=== PATIENT | female | born 2000 | race Caucasian/White ===

== ENCOUNTER 2023-09-08 15:40 | Emergency (ER) | payer OTHER, SELFPAY ==
[2023-09-08 15:41] VITALS: BP 136/91; PULSE 74; RESP 14; TEMP 36.8; O2SAT 100; BMI 28.7
[2023-09-08 15:48] VITALS: BP 136/88; PULSE 94; RESP 22
--- NOTE | 2023-09-08 15:57 | ED.VIS.CHEST ---
HPI History of Present Illness Chief Complaint: Chest Pain Informant: patient and spouse/S.O. Narrative Narrative: Patient presents with some chest and left shoulder neck area pain. Patient is overall healthy. She is on no medications. No family history of heart disease. She is not on control. No blood pressure diabetes cholesterol or smoking. No drug use. She states pretty much all day she has had soreness in her left chest just left of sternum but it is also in the left upper chest the side of the neck left shoulder area and a little bit the top of the left arm. She does feel just a little bit winded at times. But no coughing. No nausea vomiting diaphoresis. Pain does not change with exertion. It might be a little bit different with motion but she is not certain. She has not had this before. She has no recent travel surgery immobilization personal or family history of DVT or PE. Again she is not on control. On review of systems I also find out that she likely has sleep apnea. Her significant other states that she will wake up and take very deep breaths and make noises. Or occasionally do almost panting breathing. She will then go back to sleep but her breathing pauses. She does also snore. He states he has noticed more of this in the last couple weeks. I also find out that the patient hit her head 2 or so weeks ago. She had a swollen area in the back. It is gone now and her symptoms are improving from that. No loss of consciousness. She does not recall any neck pain with this. PFSH PFSH Medical History no medical history Home Medications NK 09/08/23 [History Last Taken Unknown] naproxen 500 mg tablet (Naprosyn) 500 mg PO BID PRN pain #20 tabs 09/08/23 [Rx Last Taken Unknown] Allergy/AdvReac Type Severity Reaction Status Date / Time No Known Allergies Allergy Verified 09/08/23 15:41 Family History Father Heart disease Surgical History no surgical history Social History household members: significant other current occupational status: employed Smoking Status: Never smoker ROS ROS ED Constitutional Constitutional ED: Denies chills, fever(s), subjective or sweats Eyes Eyes: Denies blurry vision ENT ENT ED: Denies ear pain, rhinorrhea or sore throat Cardiovascular Cardiovascular: Reports as per HPI Respiratory/Chest Respiratory/Chest: Denies cough or sputum Gastrointestinal Gastrointestinal: Denies nausea or vomiting Musculoskeletal Musculoskeletal: Reports neck pain and other Details: See history of present illness Integumentary Denies abscess, Abrasions or rash Neurologic Neurologic: Denies headache(s), paresthesias or weakness Hematologic/Lymphatic Hematologic/Lymphatic: Denies easy bleeding or easy bruising Allergic/Immunologic Allergic/Immunologic ED: Denies urticaria EXAM Physical Exam Narrative Exam Narrative: CONSTITUTIONAL: Patient is nontoxic in appearance. The patient looks comfortable. Work of breathing looks normal. HEENT: No notable trauma noted at this time. Mucous membranes moist. EYES: No conjunctival injection. No proptosis. NECK: No JVD or stridor. She does have some left paraspinal and left side of her neck mild muscular tenderness. Axial loading does not cause any radicular symptoms though. CARDIOVASCULAR: Regular rate. Regular rhythm. No notable murmur. No JVD. Tones are not muffled or distant. Her pulses are excellent and normal in both upper and lower extremities. RESPIRATORY: No respiratory distress. Breathing is unlabored. No wheezes. No rhonchi. No rales. No pain when she takes a deep breath. No chest wall tenderness. Her saturations are normal at 100% on room air showing no hypoxia. GASTROINTESTINAL: Not distended. Bowel sounds are normal. No tenderness. GENITOURINARY: No tenderness over the bladder. No CVA tenderness. MUSCULOSKELETAL: Atraumatic. No peripheral edema. No cord. No tenderness along the deep venous system. No asymmetry. No distended veins. NEUROLOGICAL: Patient is alert and appropriate. No focal deficit noted. SKIN: No noted rashes. No diaphoresis. PSYCHIATRIC: Patient is calm. Mood is appropriate. Const Vital Signs: 09/08/23 15:41 09/08/23 15:48 09/08/23 15:49 Temperature 98.2 F Temperature Source Temporal Pulse Rate 74 94 Respiratory Rate 14 22 H Respiratory Effort Short of Breath Blood Pressure 136/91 H 136/88 H Blood Pressure Mean 106 104 Pulse Ox 100 Oxygen Delivery Method Room Air MDM MDM MDM Narrative Medical decision making narrative: Patient's symptoms sound more muscular skeletal as she is sore on almost the entire left chest wall shoulder and left side of the neck. But I do not think this is radicular. Her vitals are normal including heart rate and oxygenation level. She is PERC negative. I do not think we need to evaluate for pulmonary embolus. There is no tearing severe pain back pain or abnormal pulses or any physical exam or historical findings that would point to dissection. My independent interpretation the patient's PA and lateral chest x-ray shows no pneumothorax cardiomegaly infiltrative process rib fracture or other noted abnormality. Final reading is negative also. Patient is not some motion related symptoms. She has no risk factor for PE or known risk factor for dissection. Exam and history is not consistent with those. No indication of cardiac disease. We will treat this with Naprosyn. But she does need to follow-up. I think she also has a component of sleep apnea and we explained that this can promote health problems especially if not treated for a long time. Radiography Diagnostic Testing: Clinical Impression(s) from Imaging Studies Chest X-Ray 09/08/23 16:08 IMPRESSION: Normal x-ray examination of the chest. Electronically Signed: Lionel Goddard MD at 16:55 EST , EKG Initial EKG: Comments: My independent interpretation of the patient's EKG shows normal sinus rhythm with a rate of 74. No ventricular ectopy. Mild baseline variation but no sign of ST elevation or depression in the EKG was done while she had soreness. TX interval, QRS duration and QTc are all normal. This is overall a normal EKG. Discharge Plan Triage Chief Complaint: Chest Pain ED Provider: Emir Marlow Dx/Rx/DC Orders Clinical Impression: Left-sided chest wall pain Instructions: ED Chest Pain, Uncertain Cause Prescriptions: New naproxen [Naprosyn] 500 mg tablet 500 mg PO BID PRN (Reason: pain) Qty: 20 0RF No Action NK Primary Care Provider: Care Physician,No Primary Referrals: Vijay Hopkins MD [Med Staff - Corrective Therapist] - 3-5 Days Care Physician,No Primary [Primary Care Provider] - Disposition Disposition: Home, Self Care
--- NOTE | 2023-09-08 16:08 | RAD_ITS ---
STUDY: X-RAY CHEST REASON FOR EXAM: Female, 23 years old. chest pain TECHNIQUE: Frontal and lateral views of the chest. COMPARISON: None. FINDINGS: The lungs are clear and expanded. There is no demonstrated pleural abnormality. Normal size heart. Normal mediastinum and shae. Normal visualized pulmonary arteries. Normal visualized aortic arch and descending thoracic aorta. Normal visualized thoracic spine. Normal visualized ribs, clavicles, and shoulders. There is no demonstrated abnormality of the visualized soft tissue structures of the upper abdomen. RAD/Chest PA and Lateral IMPRESSION: Normal x-ray examination of the chest. Electronically Signed: Lionel Goddard MD at 16:55 EST ,
[2023-09-08 17:19] VITALS: BP 118/78; PULSE 63; RESP 16
--- OUTSIDE RECORDS SUMMARY | 2023-09-08 18:05 | XMS RPT_ITS | CCD ---
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 SHAWN LEUNG DO Primary Care Unavailab le Medications Current Medications Medication Drug Class(es) Dates Sig (Normalized) Sig (Original) metFORMIN hydrochloride 500 mg oral tablet (1 source) Biguanide Start: 06-11-2022 metFORMIN 500 mg oral tablet (IR) 0 Refill(s) Start Date: 06/11/22 Status: Ordered Problems Problem Classification Problem Date Documented Da te Episodic/Chronic Other ear and sense organ disorders (1 source) Unspecified hearing loss, bilateral; Translations: [UNSPECIFIED HEARING LOSS BILATERAL] Onset: 05-15-2021 Chronic Other ear and sense organ disorders (1 source) Hearing loss 09-01-2015 Chronic Other endocrine disorders (1 source) Polycystic ovarian syndrome; Translations: [POLYCYSTIC OVARIAN SYNDROME] Onset: 05-15-2021 Chronic Other female genital disorders (2 sources) Benign endometrial hyperplasia; Translations: [BENIGN ENDOMETRIAL HYPERPLASIA] Onset: 05-15-2021 Chronic Sprains and strains (1 source) Strain of muscle and/or tendon of lower leg; Translations: [Strain of unspecified muscle(s) and tendon(s) at lower leg level, unspecified leg, initial encounter] Onset: 06-11-2022 Episodic Results Test Name Value Interpretation Reference Range Facil ity Vital Signs Date Time Vital Sign Value Performing Clinician Randee singh 06-11-2022 11:24-0400 Body temperature 98.78 [degF] DR EDILIA SALAS MD [facility] 06-11-2022 11:24-0400 Diastolic blood pressure 88 mm[Hg] DR EDILIA SALAS MD [facility] 06-11-2022 11:24-0400 Heart rate 78 /min DR EDILIA SALAS MD [facility] 06-11-2022 11:24-0400 Respiratory rate 18 /min DR EDILIA SALAS MD [facility] 06-11-2022 11:24-0400 Systolic blood pressure 136 mm[Hg] DR EDILIA SALAS MD [facility] Encounters Encounter Date Encounter Type Care Provider Facility Start: 06-11-2022 End: 06-11-2022 Emergency department patient visit EDILIA SALAS Facility:B Start: 06-11-2022 End: 06-11-2022 Emergency department patient visit DR EDILIA SALAS MD [facility] Start: 04-30-2021 End: 04-30-2021 ambulatory NO PCP AA NO PCP [facility] Start: 04-28-2021 ambulatory ORTEGA GÓMEZ [facility] Procedures Date Procedure Procedure Detail Performing Clinician None (qualifier value) DR TYSON SALAS MD Payers Date Payer Category Payer Unknown [id number] 2001 Unknown [id number] 2001 Unknown [id number] 1974 Unknown [id number] 1959 Unknown [id number] Social History Date Type Detail Facility Start: 03-04-2019 Tobacco smoking status Never s moked tobacco (finding) [facility] Sex Assigned At Female [facility] Functional Status Date Assessment Result Facility 06-11-2022 Functional Status Independent [facility] spital [facility] 06-11-2022 Functional Status Standard Safet y ID band on, Call device within reach, Bed in low position, Wheels locked, Upper/Half-Length side-rails up, Phone within reach, personal items within reach, Assistive devices within reach, Toileting device within reach, Bedside Cart Locked, Visitor at bedside, Safety level maintained [facility] Mental Status Date Assessment Result Facility 06-11-2022 Mental Status Orientation Oriented x 4 [facility] 06-11-2022 Mental Status [facility] Discharge instructions 06-11-2022 Note Date & Type Note Facility 06-11-2022 Hospital Discharg e instructions Patient Education 06/11/2022 12:18:15 Knee Sprain Knee Sprain A sprain is an injury to the ligaments or capsule that holds a joint together. There are no broken bones. Most sprains take 3 to 6 weeks to heal. If it a severe sprain where the ligament is completely torn, it can take months to recover. Most knee sprains are treated with a splint, knee immobilizer brace, or elastic wrap for support. Severe sprains may rarely require surgery. Home care Stay off the injured leg as much as possible until you can walk on it without pain. If you have a lot of pain with walking, crutches or a walker may be prescribed. (These can be rented or purchased at many pharmacies and surgical or orthopedic supply stores). Follow your healthcare provider's advice about when to begin putting weight on that leg. Keep your leg elevated to reduce pain and swelling. When sleeping, place a pillow under the injured leg. When sitting, support the injured leg so it is above heart level. This is very important during the first 48 hours. Apply an ice pack over the injured area for 15 to 20 minutes every 3 to 6 hours. You should do this for the first 24 to 48 hours. You can make an ice pack by filling a plastic bag that seals at the top with ice cubes and then wrapping it with a thin towel. Continue to use ice packs for relief of pain and swelling as needed. As the ice melts, be careful to avoid getting your wrap, splint, or cast wet. After 48 hours, apply heat (warm shower or warm bath) for 15 to 20 minutes several times a day, or alternate ice and heat. You can place the ice pack directly over the splint. If you have to wear a jezb-wrd-xzag knee brace, you can open it to apply the ice pack, or heat, directly to the knee. Never put ice directly on the skin. Always wrap the ice in a towel or other type of cloth. You may use fzcc-cmn-zxsvmdc pain medicine to control pain, unless another pain medicine was prescribed. If you have chronic liver or kidney disease or ever had a stomach ulcer or gastrointestinal bleeding, talk with your healthcare provider before using these medicines. If you were given a splint, keep it completely dry at all times. Bathe with your splint out of the water, protected with 2 large plastic bags, sealed with rubber bands or tape at the top end. If a fiberglass splint gets wet, you can dry it with a biology department chair set to cool. If you have a wgrf-rll-gxid knee brace, you can remove this to bathe, unless told otherwise. Follow-up care Follow up with your doctor as advised. Any X-rays you had today don t show any broken bones, breaks, or fractures. Sometimes fractures don t show up on the first X-ray. Bruises and sprains can sometimes hurt as much as a fracture. These injuries can take time to heal completely. If your symptoms don t improve or they get worse, talk with your doctor. You may need a repeat X-ray. If X-rays were taken, you will be told of any new findings that may affect your care. Call 911 Call 911 if you have: Shortness of breath Chest pain When to seek medical advice Call your healthcare provider right away if any of these occur: The splint or knee immobilizer brace becomes wet or soft The fiberglass cast or splint remains wet for more than 24 hours Pain or swelling increases The injured leg or toes become cold, blue, numb, or tingly 3916-2032 [employer]. [address] [place] [address]. All rights reserved. This information is not intended as a substitute for professional medical care. Always follow your healthcare professional's instructions. Follow Up Care 06/11/2022 11:18:05 With:SHAWN LEUNG DO Address: [place] [address] [phone] When:2-4 days [facility] Emergency department Discharge summary 06-11-2022 Note Date & Type Note Facility 06-11-2022 Emergency department Discharge summary Discharge Instructions Thank you for allowing [facility] to assist you with your healthcare needs. The following is important discharge information regarding your hospital visit. Diagnosis from Today's Visit Strain of knee Fall Knee pain-swelling What to Do Next Instructions from Your Care Team Discharge Home Equipment - Ordered -- Crutches, 1 month(s), 06/11/22 12:18:00 EDT Post Acute Orders No qualifying data available. You Need to Schedule the Following Appointments Follow Up with SHAWN LEUNG DO When Within 2-4 days Where: [place] [address] [phone] Allergies NKA Medications Please ask your primary doctor or pharmacist before taking any other medication not listed, including over the counter drugs, herbal medications, vitamins and or supplements as they may interact with your home medications. What When Instructions Last Dose Unchanged metFORMIN (metFORMIN 500 mg oral tablet (IR)) Please take this list to your next doctor s visit. Bring all medications you take, including over the counter medications, herbals and other supplements with you to your doctor s visit. Patients and families are reminded to discard old lists and to update any records with all medication providers or retail pharmacies. Education Materials Knee Sprain A sprain is an injury to the ligaments or capsule that holds a joint together. There are no broken bones. Most sprains take 3 to 6 weeks to heal. If it a severe sprain where the ligament is completely torn, it can take months to recover. Most knee sprains are treated with a splint, knee immobilizer brace, or elastic wrap for support. Severe sprains may rarely require surgery. Home care Stay off the injured leg as much as possible until you can walk on it without pain. If you have a lot of pain with walking, crutches or a walker may be prescribed. (These can be rented or purchased at many pharmacies and surgical or orthopedic supply stores). Follow your healthcare provider's advice about when to begin putting weight on that leg. Keep your leg elevated to reduce pain and swelling. When sleeping, place a pillow under the injured leg. When sitting, support the injured leg so it is above heart level. This is very important during the first 48 hours. Apply an ice pack over the injured area for 15 to 20 minutes every 3 to 6 hours. You should do this for the first 24 to 48 hours. You can make an ice pack by filling a plastic bag that seals at the top with ice cubes and then wrapping it with a thin towel. Continue to use ice packs for relief of pain and swelling as needed. As the ice melts, be careful to avoid getting your wrap, splint, or cast wet. After 48 hours, apply heat (warm shower or warm bath) for 15 to 20 minutes several times a day, or alternate ice and heat. You can place the ice pack directly over the splint. If you have to wear a gpsg-uow-uyki knee brace, you can open it to apply the ice pack, or heat, directly to the knee. Never put ice directly on the skin. Always wrap the ice in a towel or other type of cloth. You may use ilgz-gkz-qeewvcv pain medicine to control pain, unless another pain medicine was prescribed. If you have chronic liver or kidney disease or ever had a stomach ulcer or gastrointestinal bleeding, talk with your healthcare provider before using these medicines. If you were given a splint, keep it completely dry at all times. Bathe with your splint out of the water, protected with 2 large plastic bags, sealed with rubber bands or tape at the top end. If a fiberglass splint gets wet, you can dry it with a biology department chair set to cool. If you have a ivrw-kug-wonf knee brace, you can remove this to bathe, unless told otherwise. Follow-up care Follow up with your doctor as advised. Any X-rays you had today don t show any broken bones, breaks, or fractures. Sometimes fractures don t show up on the first X-ray. Bruises and sprains can sometimes hurt as much as a fracture. These injuries can take time to heal completely. If your symptoms don t improve or they get worse, talk with your doctor. You may need a repeat X-ray. If X-rays were taken, you will be told of any new findings that may affect your care. Call 911 Call 911 if you have: Shortness of breath Chest pain When to seek medical advice Call your healthcare provider right away if any of these occur: The splint or knee immobilizer brace becomes wet or soft The fiberglass cast or splint remains wet for more than 24 hours Pain or swelling increases The injured leg or toes become cold, blue, numb, or tingly 6521-1200 [employer]. [address] [place] [address]. All rights reserved. This information is not intended as a substitute for professional medical care. Always follow your healthcare professional's instructions. Additional Information VACCINATE! IT SAVES LIVES! Members of the community who have not yet received the COVID-19 vaccine and would like to receive it can visit one of [facility] vaccine clinics. There are many vaccine clinic locations within the [facility]. For locations and available times, please visit www.[email or web address].[email or web address] rg. It is important to note that some COVID mobile vaccine clinics are held outdoors and may be canceled in rainy or stormy conditions. To learn more about pediatric vaccinations (ages 5-11), we invite you to visit the [facility] webpage. https://[email or web address]/pa tai/[email or web address]-Tcccs-Jgkvkvtigdp-Freque coux-Hmtlv-Sgvhgnxxw.html To learn more about the COVID-19 vaccine, we invite you to visit the [employer] website for a list of frequently asked questions. [email or web address]/Amadeo uz-eaw-Zagphlsq/letpn-Upahfgi-Inv quently_[email or web address]-Questions.pdf [facility] Patient Portal Access Instructions: Stay connected with your healthcare team and access your personal medical information anytime with the [facility] Patient Portal. If you would like a full copy of your medical records please contact the [facility] Medical Records Department Monday through Monday between 8a.m. and 4:30p.m. Please follow the directions below to access the portal: 1.Access the email account you provided upon registration to the [facility].2.Look for an invitation email from [facility].3.Open the email and access the invitation link: Accept Invitation to [facility]4.Fill in the required tellez to create your account. Sign into [email or web address] with your username and password that you created in the above steps to stay up to date. You can then view a summary of results, a summary of your visits, and the ability to download your summaries to your computer or send the information securely to a physician. Remember that your healthcare information is confidential, so carefully consider who you will allow to register on the [facility] Patient Portal for access to your information. You can also access the [facility] Patient Portal on the [employer] jeanne. Simply click on Health Records under Health Data and then click on the [employer] logo. HOW TO SAFELY DISPOSE OF PRESCRIPTION MEDICATIONS Please use one of the following methods to safely dispose of your unused medications. 1.Use a drug disposal kit: the drug disposal pouch allows you to safely discard your old and unused drugs. Ask your nurse to give you one when you are discharged.2.Visit a local take-back location: Many local pharmacies and police departments have programs that collect old and unwanted prescription drugs. Call your local pharmacy or go to http://bit.MuteButton/5K3Lh6b to find one close to you.3.Make use of household items: Use cat litter or old coffee grounds to dispose medications if other options are not available. Mix your drugs with these household products, seal them in an airtight container and throw it into the garbage. Call [facility]: [phone] to be sure your drugs can be disposed of in this way. Some medicines may require a different approach.4.Never flush your medications down the toilet. IF YOU HAVE BEEN PRESCRIBED AN OPIOIDS FOR PAIN If you have been prescribed an opioid (such as hydrocodone, oxycodone or morphine), it is critical to understand the possible side effects and risks of opioid pain medications. Even when taken as directed, opioids can have several side effects including: Tolerance, meaning you might need to take more of a medication for the same pain relief. Nausea, vomiting and/or constipation. Sleepiness, dizziness, dry mouth, confusion, depression or itching. Physical dependence, meaning you have withdrawal symptoms when a medication is stopped ? this can develop within a few days. KNOW YOUR RESPONSIBILITIES It is important to know exactly how much and how often to take the opioid pain medications you are prescribed. Never take opioids in higher amounts or more often than prescribed. Do not combine opioids with alcohol or other drugs that cause drowsiness, such as benzodiazepines, also known as benzos, including diazepam and alprazolam, muscle relaxants or sleep aids. Never sell or share prescription opioids. This is illegal. Store opioids in a secure place and out of reach of others (including children, family, friends and visitors). The last page(s) of this document has been signed and retained as a CHART COPY Signatures Patient Education Materials Knee Sprain Medication Leaflets My discharge plan and instructions have been reviewed and explained to me and I,CL FREEMAN understand my current condition and have read and understand these discharge instructions. I have received a written copy of the plan/instructions. If I have questions, I am aware that I should contact my doctor. 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 HISTORY: ORDERING SYSTEM PROVIDED HISTORY: Reason for Exam: Pain FINDINGS: Very minor patellar and medial compartment degenerative spurring is evident. Minimal lateral tilting of the patella is noted. No fracture, dislocation or significant joint fluid seen. IMPRESSION: Minor degenerative findings, no acute process. Interpreted by: Jorge L Orourke MD Preliminary Report By: Jorge L Orourke MD Electronically signed By Jorge L Orourke MD Dictated Date: 06/11/2022 12:05:14 PM Prelim Date: 06/11/2022 12:05:46 PM Sign Date: 06/11/2022 12:05:46 PM Ordering Provider: EDILIA [facility] Clinical Note 06-11-2022 Note Date & Type Note Facility 06-11-2022 Note ORIGINAL EXAMINATION: THREE XRAY VIEWS OF THE LEFT KNEE 06/11/2022 12:03 pm COMPARISON: None. HISTORY: ORDERING SYSTEM PROVIDED HISTORY: Reason for Exam: Pain FINDINGS: Very minor patellar and medial compartment degenerative spurring is evident. Minimal lateral tilting of the patella is noted. No fracture, dislocation or significant joint fluid seen. IMPRESSION: Minor degenerative findings, no acute process. Interpreted by: Jorge L Orourke MD Preliminary Report By: Jorge L Orourke MD Electronically signed By Jorge L Orourke MD Dictated Date: 06/11/2022 12:05:14 PM Prelim Date: 06/11/2022 12:05:46 PM Sign Date: 06/11/2022 12:05:46 PM Ordering Provider: [facility] Evaluation + Plan note Note Date & Type Note Facility Evaluation + Plan note No data available for this section [facility] Summary Purpose Family History No Family History Records FoundNo Family History Records FoundNo Family History Records FoundNo Family History Records Found Advance Directives No Advanced Directives Records FoundNo Advanced Directives Records FoundNo Advanced Directives Records FoundNo Advanced Directives Records Found Additional Source Comments INFORMATION SOURCE (unrecogn ized section and content) DATE CREATED AUTHOR AUTHOR'S ORGANIZ ATION 05/06/2021 [facility] DATE CREATED AUTHOR AUTHOR'S ORGANIZ ATION 06/04/2021 [facility] DATE CREATED AUTHOR AUTHOR'S ORGANIZ ATION 06/15/2022 [facility] ([place] Care Team (unrecognized sect ion and content) Care Team Personnel Name: Amari Land Resource Specialist Shannon SCHAEFFER Position: P3 Scheduling - Building Manager Advanced Member Role: Other Name: SHAWN LEUNG DO Position: P4 Physician - Primary Care Member Role: Primary Care Physician Address: Address: [address] [place], [place] [address] Name: MD MARITZA, EDILIA INIGUEZ Position: ED Physician Member Role: ED Physician Address: Address: [address] [place] [address] Care Team Related Persons Name: CHELLE FREEMAN Address: Home [address] [place], [place] [id number] Name: CHELLE FREEMAN Address: [address] [phone] US FOR RECORDS PERTAINING TO PATIENTS WHO ARE OR HAVE BEEN ENROLLED IN A CHEMICAL DEPENDENCY/SUBSTANCEABUSE PROGRAM, SOME INFORMATION MAY BE OMITTED. This clinical summary was aggregated from multiple sources. Caution should be exercised in using it in the provision of clinical care. This summary normalizes information from multiple sources, and as a consequence, information in this document may materially change the coding, format and clinical context of patient data. In addition, data may be omitted in some cases. CLINICAL DECISIONS SHOULD BE BASED ON THE PRIMARY CLINICAL RECORDS. [facility] [employer] [facility]. provides no warranty or guarantee of the accuracy or completeness of information in this document.
== END 2023-09-08 17:21 | disposition home or self-care (01) ==
PROVIDERS: Emergency Provider Emergency Medicine; Visit Provider Emergency Medicine
DX: R07.89 Other chest pain (principal); M25.512 Pain in left shoulder
CPT/HCPCS: 71046; 93005; 99282

== ENCOUNTER 2024-01-07 23:43 | Emergency (ER) | payer OTHER, SELFPAY ==
[2024-01-07 23:44] VITALS: PULSE 80; RESP 18; TEMP 36.2; O2SAT 98; BMI 31.3
--- NOTE | 2024-01-07 23:52 | EX.ED.UPPERE ---
HPI History of Present Illness Chief Complaint: Upper Extremity Injury Detail of Chief Complaint: Pain, swelling left long finger. Occured/Mechanism Mechanism/Context: Yes other see comment below Comment: Patient bites her nails. Onset/Context/Timing Onset: Days Context: Sudden Onset Timing: Continuous and Waxes and wanes Quality of Pain: Dull, Aching and Throbbing Location: Right long finger radial side Current Severity: Mild Maximum Severity: Moderate Worsened by: Typing or using her left hand Relieved by: Nothing Associated Symptoms Associated Symptoms: Negative for Parasthesia, Weakness or Loss of Funtion Narrative Narrative: Patient is a 23-year-old [id number] female who presents with pain swelling and drainage from her left long finger on the radial side. She does have history of biting her nails. She has been soaking it in salt water, apple vinegar and other home remedies. She states it has not gotten better for the last 3 days. She states the pain is worse. She denies fever, chills night sweats. She denies history of diabetes. She denies red streak or tenderness posterior left elbow or left axilla. Tetanus Immunization: 5-10 years Prior similar symptoms: No Recent Illness/Hospitalization: No PFSH PFSH Home Medications ?Medication ?Instructions ?Recorded ?Last Taken ?Type NK 09/08/23 Unknown History naproxen 500 mg tablet (Naprosyn) 500 mg PO BID PRN pain #20 tabs 09/08/23 Unknown Rx Allergy/AdvReac Type Severity Reaction Status Date / Time No Known Allergies Allergy Verified 01/07/24 23:43 Family History Father Heart disease Surgical History no surgical history no surgical history Social History household members: significant other current occupational status: employed Smoking Status: Never smoker ROS ROS ED Constitutional Constitutional ED: Denies chills, fever(s) or subjective Integumentary Reports other Details: Patient has a paronychia radial side left long finger. Neurologic Neurologic: Denies paresthesias or weakness Hematologic/Lymphatic Hematologic/Lymphatic: Denies easy bleeding or easy bruising EXAM Physical Exam Const Vital Signs: 01/07/24 23:44 Temperature 97.1 F L Temperature Source Temporal Pulse Rate 80 Respiratory Rate 18 Pulse Ox 98 Oxygen Delivery Method Room Air Positive well nourished and well developed General Appearance ED: well developed and NAD HEENT Reports moist mucous membranes normocephalic and atraumatic Eyes PERRL and EOMs intact bilaterally Resp normal respiratory effort Cardio regular rate and regular rhythm Extremity Negative for normal to inspection Extremity Narrative: Patient has evidence of a paronychia radial side. Neuro oriented x3 and CN's II-XII intact bilaterally Neuro Narrative: Median, radial and ulnar function intact. Skin Skin Narrative: Paronychia radial side left long finger no lymphangitis. No epitrochlear lymphadenopathy. MDM MDM MDM Narrative Medical decision making narrative: Patient has a paronychia. Plan a digital block and small incision to facilitate drainage. Procedures Other Procedures Procedure(s): Digital block to incise paronychia radial side left long finger. Using a 15 blade small incision was made. There is scant amount of purulent material. Discharge Plan Triage Chief Complaint: Upper Extremity Injury ED Provider: Kulwinder Khan Dx/Rx/DC Orders Clinical Impression: Paronychia of left middle finger Instructions: ED Paronychia of the Finger or Toe Prescriptions: No Action NK naproxen [Naprosyn] 500 mg tablet 500 mg PO BID PRN (Reason: pain) Qty: 20 0RF Primary Care Provider: Care Physician,No Primary Referrals: Care Physician,No Primary [Primary Care Provider] - Doctor,Your [Non-Staff] - 3-5 Days if not improving Print Language: Belarusian Disposition Disposition: Home, Self Care
[2024-01-08] MEDS: Lidocaine 1% (20 ml mdv) 20 ML Vial INFILT (00:02)
[2024-01-08 00:11] VITALS: BP 140/96; PULSE 74; RESP 16; TEMP 36.1; O2SAT 97
== END 2024-01-08 00:11 | disposition home or self-care (01) ==
PROVIDERS: Emergency Provider Emergency Medicine; PCP Internal Medicine; Visit Provider Emergency Medicine
DX: L03.012 Cellulitis of left finger (principal)
CPT/HCPCS: 10060; 99282

== ENCOUNTER → 2024-03-25 | Outpatient (CLI) | payer MEDICAID, SELFPAY | END | disposition home or self-care (01) | PROVIDERS: PCP Physician Assistant; Referring Provider Physician Assistant; Visit Provider Physician Assistant | DX: R00.2 Palpitations (principal) | CPT/HCPCS: 93225; 93226 ==

== ENCOUNTER → 2024-04-19 | Outpatient (CLI) | payer MEDICAID, SELFPAY ==
[2024-04-19 15:27] LABS: Absolute Lymphocyte Count 1.81 X10^3/uL (0.83-4.51); Absolute Neutrophil Count 2.2 X10^3/uL (2.0-7.7); Basophil# 0.04 X10^3/uL; Basophil% 0.9 % (0-1); Eosinophil# 0.18 X10^3/uL; Eosinophils% 3.9 % (0-5); Hematocrit 46.9 % (37-47); Hemoglobin 15.6 g/dL (12.0-15.0); Lymphocyte # 1.81 X10^3/ul (0.83-4.51); Lymphocyte % 39.3 % (19-41); Mean Corp Hgb Conc 33.3 g/dL (32-36); Mean Corpuscular Hgb 29.7 pg (27.0-32.0); Mean Corpuscular Volume 89.2 fL (81-99); Mean Platelet Vol. 11.2 fl (6.2-12.0); Monocyte# 0.42 X10^3/uL; Monocyte% 9.1 % (0-10); NRBC Flagged by Analyzer 0 % (0-5); Neutrophil # 2.15 X10^3/uL (2.7-7.7); Neutrophil % 46.6 % (47-70); Platelet Count 269 K/mm3 (150-450); RBC Distribution Width CV 12.5 % (11.6-14.6); Red Blood Count 5.26 M/mm3 (4.2-5.4); White Blood Count 4.6 K/mm3 (4.4-11.0)
[2024-04-19 16:15] LABS: ALB/GLOB Ratio 1.1 RATIO (0.9-2.4); AST(SGOT) 22 U/L (15-37); Alanine Aminotransfer ALT/SGPT 69 U/L (13-56); Albumin, Serum 3.9 g/dL (3.2-5.0); Alkaline Phosphatase 63 U/L (45-117); Anion Gap 6 (5-15); BUN 16 mg/dL (7-18); BUN/Creat Ratio 24.2 RATIO (10-20); Calcium,Total 9.4 mg/dL (8.5-10.1); Chloride 108 mmol/L (98-107); Cholesterol 224 mg/dL (200); Creatinine, Serum 0.66 mg/dL (0.55-1.02); EST Glomerular Filtration Rate 118 mL/min (>60); Est Glom Filt Rate - Afr Amer 143 mL/min (>60); Globulin 3.5 g/dL (2.2-4.2); Glucose 90 mg/dL (74-106); High Density Lipoprotein 51 mg/dL; Potassium 4.2 mmol/L (3.5-5.1); Protein, Total 7.4 g/dL (6.4-8.2); Sodium Level 138 mmol/L (136-145); Triglycerides 136 mg/dL; Very Low Density Lipoprotein 27 mg/dL (5-40)
== END | disposition home or self-care (01) ==
LOC: BIMLAB 12:34
PROVIDERS: PCP Physician Assistant; Referring Provider Physician Assistant; Visit Provider Physician Assistant
DX: Z00.00 Encounter for general adult medical examination without abnormal findings (principal); R00.2 Palpitations
CPT/HCPCS: 36415; 80053; 80061; 85025

== ENCOUNTER 2024-08-28 14:48 | Emergency (ER) | payer MEDICAID, SELFPAY ==
[2024-08-28 14:49] VITALS: BP 121/61; PULSE 138; RESP 19; TEMP 39; O2SAT 99
--- NOTE | 2024-08-28 15:18 | RAD_ITS ---
INDICATION: SOB EXAMINATION/TECHNIQUE: X-RAY - XR Chest 1 View COMPARISON: 09/08/2023 FINDINGS: LINES/DEVICES: None. LUNGS: No consolidation, edema or effusion. No pneumothorax. MEDIASTINUM AND CARDIOVASCULAR STRUCTURES: Cardiac silhouette not enlarged. Central airways and mediastinal contour are unremarkable. BONES AND SOFT TISSUES: Unremarkable. RAD/Chest 1 View IMPRESSION: No radiographic evidence of acute cardiopulmonary disease. Electronically Signed: Gary Marcum MD at 15:41 EST ,
[2024-08-28 15:27] VITALS: O2SAT 97; BMI 34.4
--- NOTE | 2024-08-28 15:46 | EX.ED.VIS.UR ---
HPI HPI - URI History of Present Illness Chief Complaint: Shortness of Breath Detail of Chief Complaint: Symptoms started on Monday. Informant: patient Onset/Context/Timing Onset: Days Context: Gradual Onset Timing: Continuous Current Severity: Mild Maximum Severity: Mild Associated Symptoms Associated Symptoms: Positive for Myalgias and Nonproductive cough Narrative Narrative: 24-year-old female no seen past medical or surgical history. Since Monday felt she had a mild cold. Progressively worsened today she fell a lot worse fevers high as 1019. Diffuse body aches. Mild headache. Nonproductive cough. No vomiting. No diarrhea or fever. She did take DayQuil today. Denies any dysuria. Prior similar symptoms: Yes Recent Illness/Hospitalization: No ROS ROS ED ROS Narrative Fever. Body aches. Nonproductive cough. Constitutional Constitutional ED: Reports chills and fever(s) Eyes Eyes: Denies blurry vision ENT ENT ED: Denies ear pain Cardiovascular Cardiovascular: Denies chest pain Respiratory/Chest Respiratory/Chest: Reports cough; Denies sputum Gastrointestinal Gastrointestinal: Denies abdominal pain, constipation, diarrhea, melena, nausea or vomiting Genitourinary Genitourinary ED: Denies dysuria or hematuria Musculoskeletal Musculoskeletal: Reports myalgias; Denies arthralgias, back pain or neck pain Integumentary Denies abscess or Abrasions Neurologic Neurologic: Reports headache(s) Psychiatric Psychiatric: Denies anxiety or depression Endocrine Endocrinology: Denies cold intolerance Hematologic/Lymphatic Hematologic/Lymphatic: Denies easy bleeding, easy bruising or lymphadenopathy Allergic/Immunologic Allergic/Immunologic ED: Denies mouth swelling, tongue swelling or urticaria PFSH PFS Medical History Depression Anxiety Anemia PCOS (polycystic ovarian syndrome) Home Medications ?Medication ?Instructions ?Recorded ?Last Taken ?Type buspirone 5 mg tablet 5 mg PO BID #180 tabs 05/21/24 Unknown Rx hydroxyzine HCl 25 mg tablet 25 mg PO BID PRN anxiety #20 tabs 05/22/24 Unknown Rx Allergy/AdvReac Type Severity Reaction Status Date / Time No Known Allergies Allergy Verified 05/30/24 17:49 Family History Father Heart disease Surgical History H/O dilation and curettage Social History adopted: No household members: significant other current occupational status: employed 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 Blood pressure stable 121/61. Pulse ox 9 9% on room air. H EENT exam pupils round reactive light. Mild dry mucous membranes. TMs normal. Neck nontender no lymphadenopathy no meningismus. Able to touch chin to chest. Lungs clear to auscultation bilaterally. Heart tachycardic 130 no murmur chest wall ribs nontender. Abdomen soft nontender. Moving all 4 extremities. Nontender no edema. No rashes. Normal journey lineman strength. Normal dorsi plantarflexion. Back nontender. Skin unremarkable. Neurologically she is awake alert no focal motor deficits. Exam consistent with a viral syndrome. Const Vital Signs: 08/28/24 14:49 08/28/24 15:27 Temperature 102.2 F H Temperature Source Oral Pulse Rate 138 H Respiratory Rate 19 H Respiratory Effort Short of Breath Respiratory Depth Deep Respiratory Pattern Tachypnea Blood Pressure 121/61 H Blood Pressure Mean 81 Pulse Ox 99 Oxygen Delivery Method Room Air Room Air Positive well nourished and well developed; Negative for cachectic or contractures General Appearance ED: well developed and NAD; Negative for cachectic, contractures, cyanotic, diaphoretic or pallor Nutritional Appearance: Negative for cachectic HEENT Reports dry mucous membranes; Denies moist mucous membranes normocephalic and atraumatic Mouth ED: Yes dry mucous membranes Mouth: dry mucous membranes Throat: posterior oropharynx normal Eyes PERRL and EOMs intact bilaterally General Eye ED: Negative for pale conjunctiva or scleral icterus Neck no lymphadenopathy, supple, no meningeal signs and no JVD General: Negative for anterior neck swelling or lymphadenopathy Resp normal respiratory effort and clear to auscultation bilaterally Effort and Inspection: Negative for retractions Auscultation: Negative for rales, rhonchi, wheezes or diminished lung sounds Cardio S1 normal heart sound, S2 normal heart sound and no murmurs Rate: tachycardic Rhythm: regular rhythm GI non-tender, non-distended and no masses Inspection: Negative for abdominal distention Palpation: soft; Negative for tender, guarding or mass Back/Spine no CVA tenderness and normal ROM General Back: Negative for CVA tenderness Cervical Spine: Negative for cervical spine tenderness Thoracic Spine / Upper Back: Negative for thoracic spinal tenderness Lumbar Spine / Lower Back: Negative for lumbar spinal tenderness Sacrum: Negative for tenderness Extremity normal to inspection and full ROM General Extremety ED: Negative for cyanosis or tenderness General Extremity: Negative for cyanosis Neuro oriented x3 and CN's II-XII intact bilaterally Sensorium / Orientation: alert, oriented to person, oriented to place and oriented to time; Negative for orientation impaired or lethargic Motor Exam: strength 5/5 throughout Psych mental status grossly normal Attitude: No agitated Mood & Affect: Negative for depressed, anxious or tearful Skin General Skin Exam: Negative for jaundice or pallor Lesions: no lesions Rashes: no rashes MDM MDM MDM Narrative Medical decision making narrative: 24-year-old female with parents of a viral syndrome possibly influenza versus other. Screening labs. Chest x-ray was already obtained which shows no acute abnormality. No obvious pneumonia. COVID and flu will be obtained along with show get IV fluids and p.o. Tylenol. Be reassessed. Patient did not want the IV fluids. So she did not get an IV nor any blood work. Patient's test came back flu a positive. She did not want IV labs or IV fluids. I went back to reevaluate her for 10 PM. She is doing well. Should be discharged home and treated as influenza. Fluids and rest. Tylenol and Motrin. History & Record Review Discussion w/independent historian: Patient Additional record(s) reviewed:: Prior inpatient record, Prior outpatient record, Prior ED visit and Prior labs Lab Data Attestation: I reviewed the patient's lab results. Lab results narrative: CBC shows Radiography Chest X-Ray - ED: 1 View, Read by ED Physician, Read by Radiologist, Normal, Heart, Mediastinum, Bony Structures, No Acute Disease and Chronic Changes Diagnostic Testing: Clinical Impression(s) from Imaging Studies Chest X-Ray 08/28/24 15:18 IMPRESSION: No radiographic evidence of acute cardiopulmonary disease. Electronically Signed: Gary Marcum MD at 15:41 EST Reading Location ID and State: [facility] / [place] Tel , Service support , Chest x-ray, portable, single view interpreted by myself and the radiologist shows no acute abnormality. Normal cardiac silhouette. Normal lung tellez. No pneumonia. Discharge Plan Triage Chief Complaint: Shortness of Breath ED Provider: Brandon Soria Dx/Rx/DC Orders Clinical Impression: Influenza A Instructions: ED Influenza (Adult) Prescriptions: No Action buspirone 5 mg tablet 5 mg PO BID Qty: 180 0RF hydroxyzine HCl 25 mg tablet 25 mg PO BID PRN (Reason: anxiety) Qty: 20 0RF Primary Care Provider: Louie Crum Referrals: Louie Crum PA [Primary Care Provider] - 3-5 Days if not improving Activity Restrictions/Additional Instructions: Plenty of fluids and rest. Alternate Tylenol and Motrin for fever. Follow-up your primary care provider if not improving or return if a lot worse. Your chest x-ray looked good no pneumonia. Here swab which showed flu a positive. So you have the flu. Print Language: Bengali Disposition Disposition: Home, Self Care
[2024-08-28 15:49] VITALS: BP 156/78; PULSE 81; RESP 16; TEMP 36.6; O2SAT 96
[2024-08-28] MEDS: Acetaminophen 500 MG Tablet 1000 MG PO (15:57)
--- NOTE | 2024-08-28 16:03 | ED.RN ---
Pt declines IV fluids and labs, ED MD aware.
== END 2024-08-28 16:25 | disposition home or self-care (01) ==
PROVIDERS: Emergency Provider Emergency Medicine; PCP Physician Assistant; Referring Provider Emergency Medicine; Visit Provider Emergency Medicine
DX: J10.1 Influenza due to other identified influenza virus with other respiratory manifestations (principal); R51.9 Headache, unspecified
CPT/HCPCS: 71045; 87631; 99282

== ENCOUNTER 2024-11-13 20:16 | Emergency (ER) | payer MEDICAID, SELFPAY ==
[2024-11-13 20:17] VITALS: BP 129/87; PULSE 80; RESP 14; TEMP 36.4; O2SAT 99; BMI 33.9
--- NOTE | 2024-11-13 20:56 | EDS_ITS ---
HPI History of Present Illness Chief Complaint: Dizziness Informant: patient Onset/Context/Timing Onset: Yesterday Timing: Continuous and Waxes and wanes Quality: Spinning sensation Location: Head Worsened by: Activity Relieved by: Rest Narrative Narrative: Patient presents with dizziness that began yesterday. Patient states it began gradually. Patient states her head feels like it is spinning. Patient states it is worse with any activity. Patient states it gets better with rest. Patie nt admits to some tinnitus but denies any ear pain. Patient denies any fevers or chills. Patient states she has a history of seasonal allergies. Patient denies any sore throat or rhinorrhea. Patient denies any visual changes. Patient denies any headaches. 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 and animals: Yes (2) pets and animals: dog(s) sexually active: Yes Smoking Status: Never smoker alcohol intake: current alcohol intake frequency: a few times a month substance use type: does not use diet: lactose free caffeine: Yes (1-2) Type: coffee what type of physical activity do you participate in: walking frequency: daily duration: 15-30 minutes/day seatbelt use: always do you feel safe at home: Yes ROS ROS ED Constitutional Constitutional ED: Denies chills or fever(s) Eyes Eyes: Denies blurry vision or change in vision ENT ENT ED: Denies rhinorrhea or sore throat Cardiovascular Cardiovascular: Denies chest pain or palpitations Respiratory/Chest Respiratory/Chest: Denies cough or dyspnea Gastrointestinal Gastrointestinal: Reports nausea and vomiting; Denies abdominal pain or diarrhea Genitourinary Genitourinary ED: Denies dysuria or hematuria Musculoskeletal Musculoskeletal: Denies back pain or neck pain Integumentary Denies abscess or rash Neurologic Neurologic: Denies headache(s) or weakness Allergic/Immunologic Allergic/Immunologic ED: Denies mouth swelling or urticaria EXAM Physical Exam Const Vital Signs: 11/13/24 20:17 Temperature 97.6 F L Temperature Source Oral Pulse Rate 80 Respiratory Rate 14 Blood Pressure 129/87 H Blood Pressure Mean 101 Pulse Ox 99 Oxygen Delivery Method Room Air Positive well nourished and well developed General Appearance ED: well developed and NAD HEENT Reports TM's clear and moist mucous membranes Tympanic Membrane ED: Yes TM's clear bilateral Eyes PERRL and EOMs intact bilaterally Eyes Narrative: There is nystagmus with right lateral gaze. Neck supple and no JVD Resp normal respiratory effort and clear to auscultation bilaterally Cardio regular rate and regular rhythm GI non-tender and non-distended Palpation: soft Extremity normal to inspection General Extremety ED: Negative for edema or tenderness General Extremity: Negative for edema Neuro oriented x3, CN's II-XII intact bilaterally and no sensory deficits noted Sensorium / Orientation: alert Motor Exam: strength 5/5 throughout Psych mental status grossly normal MDM MDM MDM Narrative Medical decision making narrative: Patient was advised that this is most likely peripheral vertigo. Patient was given a dose of Valium here. Treatment and Re-Evaluation :: Patient was feeling better on reevaluation. Patient states she has a headache. Patient was given a dose of Tylenol for this. Patient was given a prescription for Valium to take as needed for any dizziness. Patient was instructed to continue Tylenol or ibuprofen as needed for headaches. Patient was instructed to follow-up with her primary care physician in 5 to 7 days. Patient understood and was agreeable with the plan. All questions were answered. Discharge Plan Triage Chief Complaint: Dizziness ED Provider: Marquise Lomas Dx/Rx/DC Orders Clinical Impression: Peripheral vertigo, Headache Instructions: ED Vertigo, Unspecified Prescriptions: New diazepam [diazepam] 2 mg tablet 2 mg PO TID PRN PRN (Reason: Vertigo) Qty: 10 0RF Primary Care Provider: Louie Crum Referrals: Louie Crum PA [Primary Care Provider] - 5-7 Days Print Language: Kinyarwanda Disposition Disposition: Home, Self Care
[2024-11-13] MEDS: diazePAM 5 MG Tablet 2.5 MG PO (21:10)
[2024-11-13] MEDS: Acetaminophen 500 MG Tablet 1000 MG PO (22:30)
[2024-11-13 22:32] VITALS: BP 116/84; PULSE 84; RESP 18; TEMP 36.7; O2SAT 97
== END 2024-11-13 22:32 | disposition home or self-care (01) ==
PROVIDERS: Emergency Provider Emergency Medicine; PCP Physician Assistant; Visit Provider Emergency Medicine
DX: H81.399 Other peripheral vertigo, unspecified ear (principal); H93.19 Tinnitus, unspecified ear; R51.9 Headache, unspecified
CPT/HCPCS: 99283

== ENCOUNTER 2024-12-17 17:38 | Emergency (ER) | payer MEDICAID, SELFPAY ==
[2024-12-17 17:39] VITALS: BP 141/97; PULSE 97; RESP 18; TEMP 36.8; O2SAT 96; BMI 33.7
[2024-12-17 17:41] VITALS: BP 141/97; PULSE 97; RESP 18; TEMP 36.8; O2SAT 96
--- NOTE | 2024-12-17 18:13 | EDS_ITS ---
HPI HPI - URI History of Present Illness Chief Complaint: Cold Sx Informant: patient Onset/Context/Timing Onset: Days Context: Gradual Onset Timing: Continuous Current Severity: Mild Maximum Severity: Mild Associated Symptoms Associated Symptoms: Positive for Nasal Congestion, Shortness of Breath, Productive Cough and - (Brown phlegm.) Narrative Narrative: 23-year-old female history depression anxiety. States she has had fever cough and some intermittent wheezing last several days with productive cough of brown phlegm. Fever as high as 102.8. States that her significant other was diagnosed with pneumonia last week but was only treated with prednisone no antibiotics. Also his brother her [id number] was also diagnosed with pneumonia. She denies any vomiting or diarrhea. Prior similar symptoms: Yes Recent Illness/Hospitalization: No ROS ROS ED ROS Narrative Cough. Fever. Intermittent wheezing. Constitutional Constitutional ED: Reports fever(s) Eyes Eyes: Denies blurry vision ENT ENT ED: Denies ear pain Cardiovascular Cardiovascular: Denies chest pain Respiratory/Chest Respiratory/Chest: Reports cough, dyspnea and sputum Gastrointestinal Gastrointestinal: Denies abdominal pain, constipation, diarrhea, melena, nausea or vomiting Genitourinary Genitourinary ED: Denies dysuria or hematuria Musculoskeletal Musculoskeletal: Denies arthralgias Integumentary Denies abscess or Abrasions Neurologic Neurologic: Denies headache(s) Psychiatric Psychiatric: Denies anxiety or depression Endocrine Endocrinology: Denies cold intolerance Hematologic/Lymphatic Hematologic/Lymphatic: Denies easy bleeding, easy bruising or lymphadenopathy Allergic/Immunologic Allergic/Immunologic ED: Denies mouth swelling, tongue swelling or urticaria [facility] Medical History Depression Anxiety Anemia PCOS (polycystic ovarian syndrome) Home Medications ?Medication ?Instructions ?Recorded ?Last Taken ?Type diazepam 2 mg tablet 2 mg PO TID PRN PRN Vertigo #10 11/13/24 Unknown Rx TABLETS prednisone 50 mg tablet 50 mg PO DAILY 5 days #5 tab s 12/17/24 Unknown Rx Allergy/AdvReac Type Severity Reaction Status Date / Time No Known Allergies Allergy Verified 12/17/24 17:39 Family History Father Heart disease Surgical History H/O dilation and curettage Social History adopted: No household members: significant other current occupational status: employed 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 Vital signs stable afebrile. Pulse ox 96% on room air no hypoxia. H EENT exam pupils round react light. Moist mucous m embranes. No trouble swallowing or breathing. Neck nontender JVD. No lymphadenopathy. No meningismus. Lungs clear to auscultation bilaterally. Currently no rales rhonchi or wheezing. Equal symmetric. Heart regular rhythm rate about 95 no murmur. Chest wall ribs nontender. Abdomen soft nontender. Back nontender. Moving all 4 extremities. Nontender no edema. 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 Normal dorsi plantarflexion. Calves are nontender. No cords. Neurologically she is awake alert. No focal motor deficits. Very benign exam. Const Vital Signs: 12/17/24 17:39 12/17/24 17:41 12/17/24 18:45 Temperature 98.2 F 98.2 F 98.1 F Temperature Source Oral Oral Pulse Rate 97 97 78 Respiratory Rate 18 18 19 H Blood Pressure 141/97 H 141/97 H 140/77 H Blood Pressure Mean 111 111 98 Pulse Ox 96 96 99 Oxygen Delivery Method Room Air Room Air Positive well nourished and well developed; Negative for cachectic or contractures General Appearance ED: well developed and NAD; Negative for cachectic, contractures, cyanotic, diaphoretic or pallor Nutritional Appearance: Negative for cachectic HEENT Reports moist mucous membranes normocephalic and atraumatic Face and Sinus: Negative for sinus tenderness, maxillary instability or facial tenderness Throat: posterior oropharynx normal Eyes PERRL and EOMs intact bilaterally General Eye ED: Negative for pale conjunctiva or scleral icterus Neck no lymphadenopathy, supple, no meningeal signs and no JVD General: Negative for anterior neck swelling or lymphadenopathy Resp normal respiratory effort and clear to auscultation bilaterally Effort and Inspection: Negative for retractions Auscultation: Negative for rales, rhonchi, wheezes or diminished lung sounds Cardio S1 normal heart sound, S2 normal heart sound and no murmurs Rate: regular rate Rhythm: regular rhythm GI non-tender, non-distended and no masses Inspection: Negative for abdominal distention Auscultation: normoactive bowel sounds Palpation: soft; Negative for tender, guarding or mass Back/Spine no CVA tenderness and normal ROM Extremity normal to inspection and full ROM Neuro oriented x3 and CN's II-XII intact bilaterally Sensorium / Orientation: alert, oriented to person, oriented to place and oriented to time; Negative for orientation impaired, lethargic or stuporous Motor Exam: strength 5/5 throughout Psych mental status grossly normal Attitude: No agitated Mood & Affect: Negative for depressed, anxious or tearful Skin General Skin Exam: Negative for jaundice or pallor Lesions: no lesions Rashes: no rashes Trauma: Negative for abrasion, laceration or puncture MDM MDM MDM Narrative Medical decision making narrative: 24-year-old female URI symptoms. Suspect viral URI. Reportedly her significant other had pneumonia as did his brother last week. Chest x-ray will be obtained. Clinically I do not hear pneumonia. She is currently not wheezing or in any respiratory distress I do not think she needs any aerosols currently. Repeat exam patient is doing well at 6:47 PM. We went over her normal chest x- ray results. She will be discharged home. Treated as a viral URI. Given a prescription for prednisone 50 mg/day as needed if she is having wheezing. Otherwise she does not need to take it. She does not need any antibiotics. History & Record Review Discussion w/independent historian: Patient and Family Additional record(s) reviewed:: Prior inpatient record, Prior outpatient record, Prior ED visit and Prior labs Radiography Chest X-Ray - ED: 2 View, Read by ED Physician, Normal, Heart, Lungs, Bony Structures, No Acute Disease and Chronic Changes Diagnostic Testing: Chest x-ray, 2 views, AP and lateral, interpreted by myself shows normal cardiac silhouette. Normal lung tellez. No effusion. No pneumonia. Discharge Plan Triage Chief Complaint: Cold Sx ED Provider: Brandon Soria Dx/Rx/DC Orders Clinical Impression: Viral URI Instructions: ED URI, Viral, No Abx (Adult) Prescriptions: New prednisone 50 mg tablet 50 mg PO DAILY 5 Days Qty: 5 0RF Rx Instructions: As needed for wheezing. No Action diazepam [diazepam] 2 mg tablet 2 mg PO TID PRN PRN (Reason: Vertigo) Qty: 10 0RF Primary Care Provider: Louie Crum Referrals: Louie Crum PA [Primary Care Provider] - 1 Week if not improving Activity Restrictions/Additional Instructions: Chest x-ray look good. No pneumonia. Plenty of fluids and rest. Alternate Tylenol and Motrin for body aches and any fever. Prednisone as needed if you are wheezing. If you are not you do not need to take it. You should progressively improve if not follow-up with your primary care provider. Print Language: Wolof Disposition Disposition: Home, Self Care
--- NOTE | 2024-12-17 18:15 | RAD_ITS ---
PROCEDURE: CHEST PA AND LATERAL 12/17/2024 REASON FOR EXAM: COUGH AND FEVER TECHNIQUE: Frontal and lateral views of the chest. COMPARISON: 08/28/2024 FINDINGS: Hardware: None Heart: The heart size is normal. Mediastinum: The mediastinal contour is unremarkable. Lungs: The lungs are clear. Bones: The bones are unremarkable. RAD/Chest PA and Lateral IMPRESSION: NO ACUTE FINDINGS. Reading Location: [facility]
[2024-12-17 18:45] VITALS: BP 140/77; PULSE 78; RESP 19; TEMP 36.7; O2SAT 99
== END 2024-12-17 18:52 | disposition home or self-care (01) ==
PROVIDERS: Emergency Provider Emergency Medicine; PCP Physician Assistant; Visit Provider Emergency Medicine
DX: J06.9 Acute upper respiratory infection, unspecified (principal)
CPT/HCPCS: 71046; 99282

== ENCOUNTER 2024-12-21 10:14 | Emergency (ER) | payer MEDICAID, SELFPAY ==
[2024-12-21 10:15] VITALS: BP 133/97; PULSE 63; RESP 16; TEMP 35.9; O2SAT 98
--- NOTE | 2024-12-21 10:25 | EDS_ITS ---
HPI History of Present Illness Chief Complaint: Upper Extremity Injury Narrative Narrative: 24-year-old female who denies significant past medical history presents with injury to her left shoulder that she sustained approximately an hour ago. She relates history that she was sitting/lying on the couch, and her 40 pound dog likes to jump a lot. She had her left arm extended away from her body at approximately 45 degrees. Her dog jumped up, and landed on her left shoulder. She states she felt a snap and now has a lot of pain in her left shoulder and difficulty moving it. She denies other injury, dog did not jump on her head, no loss of consciousness, no neck pain. She is right-hand dominant. Initially she went to urgent care who instructed her to report to the emergency department. [facility] Medical History Depression Anxiety Anemia PCOS (polycystic ovarian syndrome) Home Medications ?Medication ?Instructions ?Recorded ?Last Taken ?Type diazepam 2 mg tablet 2 mg PO TID PRN PRN Vertigo #10 11/13/24 Unknown Rx TABLETS prednisone 50 mg tablet 50 mg PO DAILY 5 days #5 tab s 12/17/24 Unknown Rx hydrocodone-acetaminophen 5-325mg 1 tab PO Q6H PRN PRN Pain 3 days 12/21/24 Unknown Rx 5mg-325mg #10 TABLETS Allergy/AdvReac Type Severity Reaction Status Date / Time No Known Allergies Allergy Verified 12/21/24 10:15 Family History Father Heart disease Surgical History H/O dilation and curettage Social History adopted: No household members: significant other current occupational status: employed 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 No hitting of head, no loss of consciousness, no neck pain. Denies other injury. No nausea or vomiting. EXAM Physical Exam Narrative Exam Narrative: GCS 15. ABCs are intact. Cardiovascular examination regular rate and rhythm. Lungs are clear to auscultation bilaterally. The abdomen is soft and nontender without guarding or rebound. Inspection of the left shoulder reveals diffuse tenderness to palpation about the left shoulder. No clavicular tenderness. No crepitance. She appears neurovascularly intact distally with palpable radial pulse. Able to oppose thumb. Holding arm with elbow in flexion. Const Vital Signs: 12/21/24 10:15 Temperature 96.6 F L Temperature Source Temporal Pulse Rate 63 Respiratory Rate 16 Blood Pressure 133/97 H Blood Pressure Mean 109 Pulse Ox 98 Oxygen Delivery Method Room Air MDM MDM MDM Narrative Medical decision making narrative: Differential diagnosis includes but not limited to humeral head fracture versus dislocation versus AC joint separation. I have low clinical suspicion for shoulder dislocation. Patient was administered oxycodone 5 mg orally and x-rays obtained of the left shoulder in 2 to 3 views and interpreted by myself independently. On my independent interpretation I see no evidence of an acute fracture or dislocation. I reviewed the radiology report which confirms my independent interpretation. At this point in time, I feel she probably has more of a strain or sprain of her left shoulder. She was written a prescription for 10 [place] tablets and placed in a sling for comfort. She was told to exercise her left shoulder a few times a day to prevent adhesive capsulitis. She will continue anti-inflammatories as well. She can follow-up with her primary care provider but she was also referred to orthopedics to follow-up in 1 week if not improving. Return instructions reviewed. Disposition is discharged home in stable condition. History & Record Review Discussion w/independent historian: Patient Discharge Plan Triage Chief Complaint: Upper Extremity Injury ED Provider: Sravan Shultz Dx/Rx/DC Orders Clinical Impression: Sprain of left shoulder, Strain of left shoulder Instructions: ED Shoulder Sprain, ED Shoulder Pain, Uncertain Cause Prescriptions: New hydrocodone-acetaminophen 5-325 mg tablet 1 tab PO Q6H PRN PRN (Reason: Pain) 3 Days Qty: 10 0RF No Action diazepam [diazepam] 2 mg tablet 2 mg PO TID PRN PRN (Reason: Vertigo) Qty: 10 0RF prednisone 50 mg tablet 50 mg PO DAILY 5 Days Qty: 5 0RF Rx Instructions: As needed for wheezing. Primary Care Provider: Louie Crum Referrals: Masood Santos MD [Med Staff - Active Staff] - 1 Week if not improving Louie Crum PA [Primary Care Provider] - Activity Restrictions/Additional Instructions: You can wear your sling for comfort, but exercise your left shoulder a few times a day to prevent frozen shoulder. Take anti-inflammatories and ice the area as well. Follow-up with orthopedics or your primary care provider in 1 week if not improving. Print Language: Luxembourger Disposition Disposition: Home, Self Care
[2024-12-21] MEDS: oxyCODONE 5 MG Tablet PO (10:28)
[2024-12-21 10:29] VITALS: BMI 33.1
--- NOTE | 2024-12-21 10:40 | RAD_ITS ---
EXAM: XR Left Shoulder Complete, 2 or More Views CLINICAL INDICATION: TRAUMA TECHNIQUE: Two or more views of the left shoulder. COMPARISON: No relevant prior studies available. FINDINGS: BONES/JOINTS: Unremarkable. No acute fracture. No dislocation. SOFT TISSUES: Unremarkable. RAD/Shoulder min 2 Views IMPRESSION: No acute fracture. Reading Location: [id number]
[2024-12-21 11:31] VITALS: BP 115/73; PULSE 63; RESP 16; TEMP 36.8; O2SAT 98
== END 2024-12-21 11:32 | disposition home or self-care (01) ==
PROVIDERS: Emergency Provider Emergency Medicine; PCP Physician Assistant; Visit Provider Emergency Medicine
DX: S46.912A Strain of unspecified muscle, fascia and tendon at shoulder and upper arm level, left arm, initial encounter (principal); S43.402A Unspecified sprain of left shoulder joint, initial encounter; W54.1XXA Struck by dog, initial encounter
CPT/HCPCS: 73030; 99283